=== PATIENT | female | born 1965 | race Asian ===

== ENCOUNTER 2019-12-09 09:15 | Emergency (ER) | payer OTHER ==
[~2019-12-09] VITALS: Ht 149.9 cm; Wt 77.3 kg
[2019-12-09] MEDS ORDERED: OXYB5XL PO (09:24)
[2019-12-09 10:26] LABS: BASOPHILS % (AUTO) 0.7 % (0.0-2.0); EOSINOPHILS % (AUTO) 1.2 % (1.0-6.0); HEMOGLOBIN 11.9 g/dL (12.0-16.0); LYMPHOCYTES # (AUTO) 0.8 K/uL (1.0-4.8); LYMPHOCYTES % (AUTO) 14.5 % (22.0-44.0); MEAN CORPUSCULAR HEMOGLOBIN 21.2 pg (26.0-34.0); MEAN CORPUSCULAR HGB CONC 31.3 G/dL (31.0-37.0); MEAN CORPUSCULAR VOLUME 68 fL (80-100); MONOCYTES # (AUTO) 0.4 K/uL (0.1-1.0); MONOCYTES % (AUTO) 8.2 % (2.0-9.0); NEUTROPHILS # (AUTO) 4.1 K/uL (1.8-7.7); NEUTROPHILS % (AUTO) 75.4 % (40.0-70.0); PLATELET COUNT (AUTO) 206 K/uL (150-450); RED BLOOD CELL COUNT(AUTO) 5.63 MIL/uL (4.00-5.20); RED CELL DISTRIBUTION WIDTH 16.6 % (11.5-14.5)
[2019-12-09 10:37] LABS: CALCIUM, TOTAL 8.7 mg/dL (8.8-10.5); CREATININE 1.08 mg/dL (0.60-1.30); POTASSIUM 3.7 mmol/L (3.5-5.1)
[2019-12-09 10:57] LABS: APPEARANCE,URINE CLEAR (CLEAR); BILIRUBIN,URINE NEGATIVE (NEGATIVE); GLUCOSE, URINE (UA) NEGATIVE (NEGATIVE); KETONES,URINE NEGATIVE (NEGATIVE); LEUKOCYTE ESTERASE ,URINE NEGATIVE (NEGATIVE); NITRATE,URINE NEGATIVE (NEGATIVE); OCCULT BLOOD,URINE SMALL (NEGATIVE); PH,URINE 7.5 (5.0-8.0); PROTEIN,URINE NEGATIVE (NEGATIVE); UROBILINOGEN,URINE 0.2 mg/dL (<=1.0)
[2019-12-09 11:12] LABS: BACTERIA,URINE None Seen /HPF (None Seen); SQUAMOUS EPITHELIAL CELL,UR Rare /LPF (None Seen); WBC,URINE None Seen /HPF (0-5)
[2019-12-09 12:56] VITALS: BP 125/76
== END 2019-12-09 12:57 | disposition home or self-care (01) ==
LOC: EMS 09:16
DX: N93.9 Abnormal uterine and vaginal bleeding, unspecified (principal)
CPT/HCPCS: 51701; 76856

== ENCOUNTER 2021-01-22 07:03 | Emergency (ER) | payer OTHER ==
[~2021-01-22] VITALS: Ht 162.6 cm; Wt 68.2 kg
[~2021-01-22 07:03] MED LIST: OXYB-34 PO
[2021-01-22 07:07] VITALS: BP 142/91
[2021-01-22] MEDS ORDERED: LOSA25TA21 PO (07:14)
[2021-01-22] MEDS ORDERED: HYDR25TA2 PO (07:14)
[2021-01-22] MEDS ORDERED: AMLO5TAB66 PO (07:14)
[2021-01-22] MEDS ORDERED: ATOR10TA69 PO (07:15)
[2021-01-22] MEDS ORDERED: POTA25TA7 PO (07:15)
[2021-01-22] MEDS ORDERED: ACETAMINOPHEN 500 MG TABLET PO ONE (07:45)
[2021-01-22] MEDS ORDERED: BACLOFEN 10 MG TABLET PO ONE (07:45)
[2021-01-22] MEDS ORDERED: KETOROLAC TROMETHAMINE 60 MG/2 ML VIAL IM ONE (07:45)
== END 2021-01-22 08:35 | disposition home or self-care (01) ==
LOC: EMS 07:04
DX: M16.12 Unilateral primary osteoarthritis, left hip (principal); M54.50 Low back pain, unspecified
CPT/HCPCS: 96372; 99283; J1885

== ENCOUNTER 2021-01-26 06:29 | Emergency (ER) | payer OTHER ==
[~2021-01-26] VITALS: Ht 149.9 cm; Wt 72.7 kg
[~2021-01-26 06:29] MED LIST changes: +AMLO5TAB66 PO; +ATOR10TA69 PO; +HYDR25TA2 PO; +LOSA25TA21 PO; +POTA25TA7 PO
[2021-01-26] MEDS ORDERED: KETOROLAC TROMETHAMINE 60 MG/2 ML VIAL IM ONE (07:00)
[2021-01-26] MEDS ORDERED: ACETAMINOPHEN/CODEINE 300-30 MG TABLET PO ONE (07:00)
[2021-01-26 07:21] LABS: BASOPHILS % (AUTO) 0.3 % (0.0-2.0); EOSINOPHILS % (AUTO) 1.7 % (1.0-6.0); HEMATOCRIT 32.5 % (36-46); HEMOGLOBIN 10.2 g/dL (12.0-16.0); LYMPHOCYTES # (AUTO) 0.8 K/uL (1.0-4.8); LYMPHOCYTES % (AUTO) 11.5 % (22.0-44.0); MEAN CORPUSCULAR HEMOGLOBIN 20.3 pg (26.0-34.0); MEAN CORPUSCULAR HGB CONC 31.3 G/dL (31.0-37.0); MEAN CORPUSCULAR VOLUME 65 fL (80-100); MONOCYTES # (AUTO) 0.4 K/uL (0.1-1.0); MONOCYTES % (AUTO) 5.9 % (2.0-9.0); NEUTROPHILS # (AUTO) 5.6 K/uL (1.8-7.7); NEUTROPHILS % (AUTO) 80.6 % (40.0-70.0); PLATELET COUNT (AUTO) 273 K/uL (150-450); RED BLOOD CELL COUNT(AUTO) 5.01 MIL/uL (4.00-5.20); RED CELL DISTRIBUTION WIDTH 15.4 % (11.5-14.5)
[2021-01-26 07:44] LABS: APPEARANCE,URINE CLEAR (CLEAR); BILIRUBIN,URINE NEGATIVE (NEGATIVE); GLUCOSE, URINE (UA) NEGATIVE (NEGATIVE); KETONES,URINE NEGATIVE (NEGATIVE); LEUKOCYTE ESTERASE ,URINE NEGATIVE (NEGATIVE); NITRATE,URINE NEGATIVE (NEGATIVE); OCCULT BLOOD,URINE NEGATIVE (NEGATIVE); PROTEIN,URINE NEGATIVE (NEGATIVE); UROBILINOGEN,URINE 0.2 mg/dL (<=1.0)
[2021-01-26 07:47] LABS: ANION GAP 8 mmol/L (8-16); CALCIUM, TOTAL 8.8 mg/dL (8.8-10.5); CARBON DIOXIDE 34 mmol/L (22-29); CHLORIDE 102 mmol/L (98-107); CREATININE 0.64 mg/dL (0.60-1.30); GLOMERULAR FILTR. RATE CALC > 60 mL/min (>60); GLUCOSE,RANDOM 102 mg/dL (70-110); POTASSIUM 3.3 mmol/L (3.5-5.1); SODIUM SERUM 144 mmol/L (136-145); UREA NITROGEN, BLOOD 14 mg/dL (7-18)
[2021-01-26 07:52] LABS: ALANINE AMINOTRANSFERASE 53 U/L (12-78); ALBUMIN 3.4 g/dL (3.4-5.0); ALKALINE PHOSPHATASE 71 U/L (46-116); ASPARTATE AMINOTRANSFERASE 31 U/L (15-37); BILIRUBIN,TOTAL 0.4 mg/dL (0.1-1.0); LIPASE 76 U/L (73-393); TOTAL PROTEIN, SERUM 7.6 g/dL (6.4-8.2)
[2021-01-26 08:02] LABS: BACTERIA,URINE None Seen /HPF (None Seen); RBC,URINE None Seen /HPF (0-2); WBC,URINE None Seen /HPF (0-5)
[2021-01-26] MEDS ORDERED: POTASSIUM CHLORIDE 10% 40 MEQ/30 ML LIQUID UDCUP PO ONE (08:30)
[2021-01-26 09:15] VITALS: BP 128/70
== END 2021-01-26 09:52 | disposition home or self-care (01) ==
LOC: EMS 06:30
DX: M16.11 Unilateral primary osteoarthritis, right hip (principal); G89.29 Other chronic pain; M54.50 Low back pain, unspecified; E78.00 Pure hypercholesterolemia, unspecified; I10 Essential (primary) hypertension; Z91.040 Latex allergy status
CPT/HCPCS: 36415; 72100; 72170; 73110 ×2; 73562 ×2; 80053; 81001; 83690; 85025; 96372; 99284; J1885

== ENCOUNTER 2021-12-20 12:11 | Emergency (ER) | payer OTHER ==
[~2021-12-20] VITALS: Ht 157.5 cm; Wt 65.9 kg
[~2021-12-20 12:11] MED LIST changes: +LOSA-381 PO; -LOSA25TA21 PO
[2021-12-20 15:10] LABS: COVID AG,FIA SOURCE NASOPHARYNGEAL
[2021-12-20 15:28] LABS: RAPID GROUP A STREP NEGATIVE (NEGATIVE)
[2021-12-20 15:39] LABS: INFLUENZA TYPE A NEGATIVE FOR TYPE A (NEGATIVE); INFLUENZA TYPE B NEGATIVE FOR TYPE B (NEGATIVE)
[2021-12-20 15:41] VITALS: BP 142/72
== END 2021-12-20 16:22 | disposition home or self-care (01) ==
LOC: EMS 12:11
DX: U07.1 COVID-19 (principal); E78.00 Pure hypercholesterolemia, unspecified; I10 Essential (primary) hypertension; Z85.850 Personal history of malignant neoplasm of thyroid; Z98.890 Other specified postprocedural states
CPT/HCPCS: 87430; 87804; 99283

== ENCOUNTER 2022-02-23 09:23 | Emergency (ER) | payer OTHER ==
[~2022-02-23] VITALS: Ht 149.9 cm; Wt 72.3 kg
[2022-02-23] MEDS ORDERED: TRIAMCINOLONE ACETONIDE 40 MG/ML VIAL IARTIC ONE (10:00)
[2022-02-23] MEDS ORDERED: LIDOCAINE 1% 10 ML VIAL ID ONE (10:00)
[2022-02-23 11:01] VITALS: BP 146/82
== END 2022-02-23 11:21 | disposition home or self-care (01) ==
LOC: EMS 09:27
DX: M77.11 Lateral epicondylitis, right elbow (principal); E78.00 Pure hypercholesterolemia, unspecified; I10 Essential (primary) hypertension; R32 Unspecified urinary incontinence; C80.1 Malignant (primary) neoplasm, unspecified; Z91.040 Latex allergy status; Z98.890 Other specified postprocedural states
CPT/HCPCS: 99284; 20550; J3301; J3490

== ENCOUNTER 2023-12-20 15:43 | Emergency (ER) | payer MEDICAID, OTHER ==
[~2023-12-20] VITALS: Ht 149.9 cm; Wt 76.4 kg
[2023-12-20 16:18] VITALS: BP 124/62; PULSE 74; RESP 16; TEMP 98.4; O2SAT 96
[2023-12-20] MEDS ORDERED: IBUP-1492 PO (16:59)
[2023-12-20] MEDS: IBUPROFEN 600 MG TABLET PO ONE (17:23)
== END 2023-12-20 17:32 | disposition home or self-care (01) ==
LOC: EMS 15:43
DX: S00.03XA Contusion of scalp, initial encounter (principal); E11.9 Type 2 diabetes mellitus without complications; I10 Essential (primary) hypertension; Z91.040 Latex allergy status; W22.8XXA Striking against or struck by other objects, initial encounter; Y93.89 Activity, other specified; Y92.89 Other specified places as the place of occurrence of the external cause; Y99.8 Other external cause status
CPT/HCPCS: 99283

== ENCOUNTER 2024-04-01 15:21 | Emergency (ER) | payer MEDICAID, OTHER ==
[2024-04-01] VITALS (8 sets, daily range): BP systolic 121; BP diastolic 72; PULSE 64–75; RESP 20–22; TEMP 98.7; O2SAT 93–99
[~2024-04-01] VITALS: Ht 149.9 cm; Wt 75.0 kg
[~2024-04-01 15:21] MED LIST changes: +IBUP-1492 PO
[2024-04-01 15:56] LABS: COVID AG,FIA SOURCE NASAL SWAB
[2024-04-01 16:20] LABS: SARS-COV2 (COVID) ANTIGEN,FIA Negative (Negative)
[2024-04-01 16:22] LABS: INFLUENZA TYPE B NEGATIVE FOR TYPE B (NEGATIVE)
[2024-04-01 16:42] LABS: INFLUENZA TYPE A POSITIVE FOR TYPE A (NEGATIVE)
[2024-04-01] MEDS ORDERED: CHOL100062 PO (17:35)
[2024-04-01] MEDS ORDERED: ATOR20TA65 PO (17:35)
[2024-04-01] MEDS ORDERED: [UNRECOGNIZED DRUG - CODE] OU (17:35)
[2024-04-01] MEDS ORDERED: CALC0.5C11 PO (17:35)
[2024-04-01] MEDS ORDERED: GABA-1181 PO (17:35)
[2024-04-01] MEDS ORDERED: LEVO137T2 PO (17:35)
[2024-04-01] MEDS ORDERED: ASPI-1451 PO (17:35)
[2024-04-01] MEDS ORDERED: MONT-40 PO (17:35)
[2024-04-01] MEDS ORDERED: DULO-113 PO (17:35)
[2024-04-01] MEDS ORDERED: LORA-1339 PO (17:35)
[2024-04-01] MEDS ORDERED: ALBU18HF12 IH (17:35)
[2024-04-01] MEDS ORDERED: OXYB5TAB20 PO (17:35)
[2024-04-01] MEDS ORDERED: BACL10TA PO (17:35)
[2024-04-01] MEDS ORDERED: POTA-206 PO (17:35)
[2024-04-01] MEDS ORDERED: FLUT16SP NASAL (17:35)
[2024-04-01] MEDS ORDERED: MECL-226 PO (17:35)
[2024-04-01] MEDS ORDERED: DICL100G60 TP (17:35)
[2024-04-01] MEDS ORDERED: TRIA15CR49 TP (17:35)
[2024-04-01] MEDS ORDERED: ACET-66 PO (17:35)
[2024-04-01] MEDS ORDERED: LOSA1TAB40 PO (17:35)
[2024-04-01] MEDS ORDERED: LIDO1ADH72 TD (17:35)
[2024-04-01] MEDS ORDERED: FAMO20 PO (17:35)
[2024-04-01] MEDS: OSELTAMIVIR PHOSPHATE 75 MG CAPSULE PO ONE (18:14)
[2024-04-01] MEDS: ALBUTEROL SULFATE 2.5 MG/0.5 ML NEB SOLUTION NEB ONE (18:41)
[2024-04-01] MEDS: IPRATROPIUM BROMIDE 0.5 MG/2.5 ML NEB SOLUTION NEB ONE ×3 (18:42→21:34)
[2024-04-01] MEDS: DEXAMETHASONE SOD PHOS 4 MG/ML 5 ML VIAL IM ONE (20:56)
[2024-04-01] MEDS ORDERED: OSEL75CA45 PO (21:09)
[2024-04-01] MEDS: ALBUTEROL SULFATE 2.5 MG/0.5 ML 5 ML NEB SOLUTION NEB ONE (21:34)
[2024-04-01 22:46] LABS: INFLUENZA A-RTPCR,COMBO POSITIVE (NEGATIVE); INFLUENZA B-RTPCR,COMBO NEGATIVE (NEGATIVE); RESPIRATORY SYNCYTIAL VRS-PCR NEGATIVE (NEGATIVE); SARS COVID19 RTPCR, COMBO NEGATIVE (NEGATIVE)
== END 2024-04-01 22:59 | disposition home or self-care (01) ==
LOC: EMS 15:21
DX: J10.1 Influenza due to other identified influenza virus with other respiratory manifestations (principal); J45.909 Unspecified asthma, uncomplicated; E11.9 Type 2 diabetes mellitus without complications; E78.00 Pure hypercholesterolemia, unspecified; I10 Essential (primary) hypertension; Z79.899 Other long term (current) drug therapy; Z85.850 Personal history of malignant neoplasm of thyroid; Z20.822 Contact with and (suspected) exposure to COVID-19
CPT/HCPCS: 99285; 0241U; 71046; 87804; 94644; 96372; 87426; J1100; 94640; 99284; J7613

== ENCOUNTER → 2024-05-15 | Emergency (ER) | payer OTHER ==
[~2024-05-15] VITALS: Ht 149.9 cm; Wt 75.9 kg
[~2024-05-15] MED LIST changes: +ACET-66 PO; +ALBU18HF12 IH; +ASPI-1451 PO; -ATOR10TA69 PO; +ATOR20TA65 PO; +BACL10TA PO; +CALC0.5C11 PO; +CHOL100062 PO; +DICL100G60 TP; +DULO-113 PO; +FAMO20 PO; +FLUT16SP NASAL; +GABA-1181 PO; -HYDR25TA2 PO; -IBUP-1492 PO; +LEVO137T2 PO; +LIDO1ADH72 TD; +LORA-1339 PO; -LOSA-381 PO; +LOSA1TAB40 PO; +MECL-226 PO; +MONT-40 PO; +OSEL75CA45 PO; -OXYB-34 PO; +OXYB5TAB20 PO; +POTA-206 PO; -POTA25TA7 PO; +TRAM50TA5 PO; +TRIA15CR49 TP; +[UNRECOGNIZED DRUG - CODE] OU
[2024-05-15 00:14] VITALS: TEMP 98.9
[2024-05-15] MEDS: KETOROLAC TROMETHAMINE 30 MG/ML VIAL IM ONE (02:47)
[2024-05-15] MEDS: TraMADol HCL 50 MG TABLET PO ONE (02:47)
[2024-05-15 04:30] VITALS: BP 133/79; PULSE 85; RESP 19; O2SAT 98
== END | disposition home or self-care (01) ==
LOC: EMS 00:14
DX: G89.29 Other chronic pain (principal); M25.562 Pain in left knee; M19.90 Unspecified osteoarthritis, unspecified site; J45.909 Unspecified asthma, uncomplicated; E11.9 Type 2 diabetes mellitus without complications; E78.00 Pure hypercholesterolemia, unspecified; I10 Essential (primary) hypertension; Z79.899 Other long term (current) drug therapy; Z85.850 Personal history of malignant neoplasm of thyroid; Z98.890 Other specified postprocedural states
CPT/HCPCS: 99283; 96372; J1885